=== PATIENT | male | born 1970 | race Caucasian/White ===

== ENCOUNTER 2024-06-24 20:29 | Emergency (ER) | payer OTHER ==
[2024-06-24 20:35] VITALS: BP 119/81; PULSE 106; RESP 20; TEMP 98.3; BMI 26.6
[2024-06-24] MEDS: DIPHTH,PERTUSS(ACELL),TET 0.5 ML DISP.SYRIN IM ONE (21:37)
[2024-06-24] MEDS ORDERED: DIPHTH,PERTUSS(ACELL),TET 0.5 ML DISP.SYRIN IM ONE (21:38)
== END 2024-06-24 22:35 | disposition short-term general hospital (02) ==
LOC: JERFT 20:29
PROC: 3E0234Z Introduction of Serum, Toxoid and Vaccine into Muscle, Percutaneous Approach (ICD-10-PCS; principal; 2024-06-24)
DX: S02.85XA Fracture of orbit, unspecified, initial encounter for closed fracture (principal); S00.83XA Contusion of other part of head, initial encounter; W01.198A Fall on same level from slipping, tripping and stumbling with subsequent striking against other object, initial encounter; Z23 Encounter for immunization
CPT/HCPCS: 70450-TC; 70486-TC; 72125-TC; 90471; 90715; 99285-25